=== PATIENT | female | born 1950 | race American Indian/Alaskan Native ===

== ENCOUNTER 2017-05-16 08:42 | Emergency (ER) | payer MEDICARE, OTHER ==
[2017-05-16 08:50] VITALS: BP 154/78
--- NOTE | 2017-05-16 13:53 | Emergency Department Report ---
HPI - General Chief Complaint: Upper Respiratory Infection Time Seen by Provider: 05/16/17 13:52 - HPI HPI: Patient reports that she has cough and cold since yesterday. She says she was exposed to the flu from under great grandkids. Sore throat at 5 out of 10 and worse with swallowing.. Denies any nausea or vomiting. Reports fever and chills and headache. Denies any abdominal or chest pain. Denies any difficulty breathing. Denies any difficulty swallowing or holding secretions. No medication taken. ED Past Medical Hx - Past Medical History Previous Medical History?: Yes Hx Diabetes: Yes Additional medical history: "stomach issues" x 1week - Surgical History Additional Surgical History: bilateral cataracts. - Family History Family history: hypertension - Social History Smoking Status: Never Smoker Substance Use Type: None - Medications Home Medications: Home Medications Medication Instructions Recorded Confirmed Last Taken Type Amoxicillin [Trimox CAP] 500 mg PO BID 02/12/13 02/12/13 02/12/13 History Clarithromycin [Biaxin] 500 mg PO QDAY 02/12/13 02/12/13 02/12/13 History Glimepiride [Amaryl] 4 mg DAILY 02/12/13 02/12/13 02/12/13 History 0900 Minoxidil [Loniten] 2.5 mg PO QDAY 02/12/13 02/12/13 02/12/13 History Omeprazole [Prilosec] 40 mg PO QDAY 02/12/13 02/12/13 02/12/13 History Sitagliptin Phosphate [Januvia] 100 mg PO DAILY 02/12/13 02/12/13 02/12/13 08: 00 History metFORMIN [Glucophage] 500 mg PO BID 02/12/13 02/12/13 02/12/13 09:00 History Amoxicillin/K Clav Tab [Augmentin 1 tab PO Q12HR 10 Days #20 tab 05/16/17 Unknown Rx 875 mg] Cetirizine HCl [ZyrTEC] 10 mg PO QAM 10 Days #10 capsule 05/16/17 Unknown Rx Fluticasone [Flonase] 1 spray NS QDAY 10 Days #1 bottle 05/16/17 Unknown Rx ED Review of Systems ROS: Stated complaint: COLD Other details as noted in HPI Comment: All other systems reviewed and negative Constitutional: chills, fever Eyes: denies: eye pain, eye discharge ENT: throat pain, congestion. denies: ear pain, dental pain Respiratory: cough. denies: orthopnea, shortness of breath, SOB with exertion, SOB at rest, stridor, wheezing Cardiovascular: denies: chest pain, palpitations, edema, syncope Gastrointestinal: denies: abdominal pain, nausea, vomiting, diarrhea Genitourinary: denies: dysuria, frequency, hematuria Musculoskeletal: myalgia. denies: back pain, joint swelling, arthralgia Skin: denies: rash Neurological: headache. denies: weakness, numbness, paresthesias, confusion Physical Exam - Physical Exam Vital Signs: Vital Signs 05/16/17 08:47 Temperature 99.3 F Pulse Rate 103 H Respiratory 18 Rate Blood Pressure 154/78 O2 Sat by Pulse 99 Oximetry Vital Signs 05/16/17 05/16/17 08:47 14:38 Temperature 99.3 F Pulse Rate 103 H 98 H Respiratory 18 Rate Blood Pressure 154/78 O2 Sat by Pulse 99 Oximetry General: This is a 67-year-old female well-nourished well-developed in no acute distress. Physical Exam: Head: Normocephalic atraumatic Ears:BIateral TM congested without erythema and loss of bony landmarks. Ananth EAC with normal exam. No mastoid bone tenderness. Mouth: Moist, no pharyngeal erythema or exudate . No tonsillar erythema or exudate. UVULA midline and oral airways patent. No peritonsillar abscess Neck: Nontender to palpate, supple, normal range of motion. No adenopathy. No c- spine tenderness. Nose: Bilateral nasal mucosa congested with clear drainage. Maxillary and frontal sinuses non-tender to palpate. Eyes: BiLateral Sclerae and conjunctiva without injection. Bilateral pupils equal and reactive to light. Bilateral lids are normal. Normal accommodation.BEOMI Lungs: Clear to auscultate bilaterally, no rhonchi wheezes or rales. Normal work of breathing and no chest wall tenderness. Dry cough CV: S1, S2. Mild tachycardia at 103 ,Regular rhythm negative murmur. Capillary refill is less than 3 seconds Skin: Clean dry and intact, no rashes or lesions Psych: Normal mood and behavior ED Course Vital Signs 05/16/17 08:47 Temperature 99.3 F Pulse Rate 103 H Respiratory 18 Rate Blood Pressure 154/78 O2 Sat by Pulse 99 Oximetry Vital Signs 05/16/17 05/16/17 08:47 14:38 Temperature 99.3 F Pulse Rate 103 H 98 H Respiratory 18 Rate Blood Pressure 154/78 O2 Sat by Pulse 99 Oximetry - Reevaluation(s) Reevaluation #1: 05/16/17 14:39 Patient stable throughout ED stay ED Medical Decision Making - Medical Decision Making ED Course:This is a 67-year-old female reports flulike symptoms and was exposed to the flu from her great grandson. Physical findings for referral of respiratory infection. I discussed the patient that this my physical findings and that she's been exposed to the flu that I will put her on Tamiflu. She agrees to treatment plan and patient discharged home with family with prescription for Tamiflu, and Zyrtec. Patient does have a primary care physician's I discussed with her that she is follow-up with her primary care physician in 2 days, rest, increase her fluid intake. Critical care attestation.: If time is entered above; I have spent that time in minutes in the direct care of this critically ill patient, excluding procedure time. ED Disposition Clinical Impression: Exposure to influenza, Acute viral syndrome, URI with cough and congestion, Fever in adult Disposition: DC-01 TO HOME OR SELFCARE Is pt being admited?: No Does the pt Need Aspirin: No Condition: Stable Instructions: Viral Syndrome (ED), Fever in Adults (ED), Acute Cough (ED) Additional Instructions: Please increase her fluid intake to 2-3 L of water per day. Take medication as prescribed Follow-up with a primary care physician in 2 days Rest for 72 hours Take Tylenol [id number] per dosing chart guideline every 4-6 hours for fever and/or pain for 48 hours and then as needed. Prescriptions: Amoxicillin/K Clav Tab [Augmentin 875 mg] 1 tab PO Q12HR 10 Days #20 tab Cetirizine HCl [ZyrTEC] 10 mg PO QAM 10 Days #10 capsule Fluticasone [Flonase] 1 spray NS QDAY 10 Days #1 bottle Referrals: SHANELLE MORRISON MD [Primary Care Provider] - 05/18/17 Forms: Work/School Release Form(ED)
[2017-05-16] MEDS ORDERED: TYLENOL #3 PO ONE (14:59)
== END 2017-05-16 15:58 | disposition home or self-care (01) ==
LOC: ED 08:42
DX: B34.9 Viral infection, unspecified (principal); J06.9 Acute upper respiratory infection, unspecified; R50.9 Fever, unspecified; E11.9 Type 2 diabetes mellitus without complications

== ENCOUNTER 2017-07-27 08:53 | Outpatient (CLI) | payer MEDICARE ==
--- NOTE | 2017-07-27 16:32 | Mammography Report ---
BONE DEXA:07/27/17 09:30:00 CLINICAL: Postmenopausal. No comparison. TECHNIQUE: Two site bone DEXA performed on an Hologic scanner. FINDINGS: The average BMD of the lumbar spine L1-L4 is 1.027g/cm squared with a T-score of -0.2 and a Z-score of +0.9. The average BMD of the left hip is 0.933g/cm squared with a T-score of -0.1 and a Z-score of lesser 0.4. The left femoral neck BMD is 0.678g/cm squared with a T score of -1.5 and Z score of -0.6 IMPRESSION: 1. WHO classification: Normal with average fracture risk based on lumbar spine measurements. 2. WHO classification: Osteopenia with increased fracture risk based on the femoral neck measurements. 3. The FRAX 10 year fracture probability for a major osteoporotic fracture is 3.9%. 4. The FRAX 10 year fracture probability for hip fracture is 0.4%. Note: FRAX version 3.01. Fracture probability calculated for an untreated patient. Fracture probability may be lower if the patient has received treatment. RECOMMENDATION: Clinical correlation and routine screening. DEFINITIONS: BMD = Bone Mineral Density T-score = BMD related to mean peak bone mass of young adult (mean expressed in Standard Deviation) Z-score = Age matched BMD expressed in SD World Health Organization (WHO) Diagnostic Criteria Normal T-score > -1 SD Osteopenia T-score between -1 and -2.4 SD Osteoporosis T-score -2.5 SD or below NOTE: BMD is not the only risk factor for fracture; also consider factors such as the patient's age, risk of falling, previous osteoporotic fracture, family history of osteoporotic fractures, current smoker, and low body weight. All treatment decisions require clinical judgment and consideration of individual patient factors, including patient preferences, comorbidities, previous drug use and risk factors not captured in the FRAX model (e.g. frailty, falls, vitamin D deficiency, increased bone turnover, interval significant decline in BMD). Fracture probability is calculated for an untreated patient. Fracture probability may be lower if the patient has received treatment. Z-scores are not calculated if >80 years of age.
== END 2017-07-27 08:54 | disposition home or self-care (01) ==
LOC: MAMMO 08:53
PROVIDERS: ATTEND Internal Medicine
DX: M85.88 Other specified disorders of bone density and structure, other site (principal); M81.0 Age-related osteoporosis without current pathological fracture; Z78.0 Asymptomatic menopausal state
CPT/HCPCS: 77080

== ENCOUNTER 2020-01-06 11:23 | Emergency (ER) | payer MEDICARE, OTHER ==
[2020-01-06 11:52] VITALS: BP 160/83
--- NOTE | 2020-01-06 12:48 | Emergency Department Report ---
ED ENT HPI - General Chief complaint: Earache Stated complaint: LFT EAR/EAR BLEEDING Time Seen by Provider: 01/06/20 12:43 Source: patient Mode of arrival: Ambulatory Limitations: No Limitations - History of Present Illness Initial comments: 69-year-old -Turkish female presents to the emergency room for 1 week history of left ear pain. Patient states that this morning she started knowing some discharge that is blood-tinged. She reports that the pain is worse when she chews on the left side. She states that she has been taking Tylenol with no relief. She is seen by Dr. Morrison he recommend for her to follow-up with the ear nose and throat provider. Patient states that the ENT reports that that she is not their patient and that she should go to the emergency room. MD complaint: ear pain Onset/Timin -: week(s) Location: L ear Severity: severe Severity scale (0 -10): 9 Quality: burning, stabbing, sharp Consistency: constant Improves with: none Worsens with: eating Associated Symptoms: discharge from ear - Related Data Home Medications Medication Instructions Recorded Confirmed Last Taken Amoxicillin [Trimox CAP] 500 mg PO BID 02/12/13 02/12/13 02/12/13 Clarithromycin [Biaxin] 500 mg PO QDAY 02/12/13 02/12/13 02/12/13 Glimepiride [Amaryl] 4 mg DAILY 02/12/13 02/12/13 02/12/13 0900 Omeprazole [Prilosec] 40 mg PO QDAY 02/12/13 02/12/13 02/12/13 Sitagliptin Phosphate [Januvia] 100 mg PO DAILY 02/12/13 02/12/13 02/12/13 08:00 metFORMIN [Glucophage] 500 mg PO BID 02/12/13 02/12/13 02/12/13 09:00 minoxidiL [Loniten] 2.5 mg PO QDAY 02/12/13 02/12/13 02/12/13 Previous Rx's Medication Instructions Recorded Last Taken Type Acetaminophen [Tylenol] 500 mg PO Q6HR PRN #12 tablet 05/16/17 Unknown Rx Cetirizine HCl [ZyrTEC] 10 mg PO QAM 10 Days #10 capsule 05/16/17 Unknown Rx Fluticasone [Flonase] 1 spray NS QDAY 10 Days #1 bottle 05/16/17 Unknown Rx Oseltamivir [Tamiflu] 75 mg PO BID 5 Days #10 cap 05/16/17 Unknown Rx Amoxicillin/K Clav Tab [Augmentin 1 tab PO Q12HR 10 Days #20 tab 01/06/20 Unknown Rx 875 mg] Neomy/Polymyx B/Hc Otic Susp 4 drops TID 10 Days #1 bottle 01/06/20 Unknown Rx [Cortisporin (Otic) Susp] Allergies Allergy/AdvReac Type Severity Reaction Status Date / Time No Known Allergies Allergy Unverified 02/12/13 19:45 ED Dental HPI - General Chief complaint: Earache Stated complaint: LFT EAR/EAR BLEEDING Time Seen by Provider: 01/06/20 12:43 Source: patient Mode of arrival: Ambulatory Limitations: No Limitations - Related Data Home Medications Medication Instructions Recorded Confirmed Last Taken Amoxicillin [Trimox CAP] 500 mg PO BID 02/12/13 02/12/13 02/12/13 Clarithromycin [Biaxin] 500 mg PO QDAY 02/12/13 02/12/13 02/12/13 Glimepiride [Amaryl] 4 mg DAILY 02/12/13 02/12/13 02/12/13 0900 Omeprazole [Prilosec] 40 mg PO QDAY 02/12/13 02/12/13 02/12/13 Sitagliptin Phosphate [Januvia] 100 mg PO DAILY 02/12/13 02/12/13 02/12/13 08:00 metFORMIN [Glucophage] 500 mg PO BID 02/12/13 02/12/13 02/12/13 09:00 minoxidiL [Loniten] 2.5 mg PO QDAY 02/12/13 02/12/13 02/12/13 Previous Rx's Medication Instructions Recorded Last Taken Type Acetaminophen [Tylenol] 500 mg PO Q6HR PRN #12 tablet 05/16/17 Unknown Rx Cetirizine HCl [ZyrTEC] 10 mg PO QAM 10 Days #10 capsule 05/16/17 Unknown Rx Fluticasone [Flonase] 1 spray NS QDAY 10 Days #1 bottle 05/16/17 Unknown Rx Oseltamivir [Tamiflu] 75 mg PO BID 5 Days #10 cap 05/16/17 Unknown Rx Amoxicillin/K Clav Tab [Augmentin 1 tab PO Q12HR 10 Days #20 tab 01/06/20 Unknown Rx 875 mg] Neomy/Polymyx B/Hc Otic Susp 4 drops TID 10 Days #1 bottle 01/06/20 Unknown Rx [Cortisporin (Otic) Susp] Allergies Allergy/AdvReac Type Severity Reaction Status Date / Time No Known Allergies Allergy Unverified 02/12/13 19:45 ED Review of Systems ROS: Stated complaint: LFT EAR/EAR BLEEDING Other details as noted in HPI Comment: All other systems reviewed and negative ED Past Medical Hx - Past Medical History Hx Diabetes: Yes Additional medical history: "stomach issues" x 1week - Surgical History Additional Surgical History: bilateral cataracts. - Social History Smoking Status: Former Smoker Substance Use Type: None - Medications Home Medications: Home Medications Medication Instructions Recorded Confirmed Last Taken Type Amoxicillin [Trimox CAP] 500 mg PO BID 02/12/13 02/12/13 02/12/13 History Clarithromycin [Biaxin] 500 mg PO QDAY 02/12/13 02/12/13 02/12/13 History Glimepiride [Amaryl] 4 mg DAILY 02/12/13 02/12/13 02/12/13 History 0900 Omeprazole [Prilosec] 40 mg PO QDAY 02/12/13 02/12/13 02/12/13 History Sitagliptin Phosphate [Januvia] 100 mg PO DAILY 02/12/13 02/12/13 02/12/13 08:00 History metFORMIN [Glucophage] 500 mg PO BID 02/12/13 02/12/13 02/12/13 09:00 History minoxidiL [Loniten] 2.5 mg PO QDAY 02/12/13 02/12/13 02/12/13 History Acetaminophen [Tylenol] 500 mg PO Q6HR PRN #12 tablet 05/16/17 Unknown Rx Cetirizine HCl [ZyrTEC] 10 mg PO QAM 10 Days #10 capsule 05/16/17 Unknown Rx Fluticasone [Flonase] 1 spray NS QDAY 10 Days #1 bottle 05/16/17 Unknown Rx Oseltamivir [Tamiflu] 75 mg PO BID 5 Days #10 cap 05/16/17 Unknown Rx Amoxicillin/K Clav Tab [Augmentin 1 tab PO Q12HR 10 Days #20 tab 09/18/20 Unknown Rx 875 mg] Neomy/Polymyx B/Hc Otic Susp 4 drops TID 10 Days #1 bottle 01/06/20 Unknown Rx [Cortisporin (Otic) Susp] ED Physical Exam - General Limitations: No Limitations General appearance: alert, in distress - Head Head exam: Present: atraumatic, normocephalic - Eye Eye exam: Present: normal appearance - ENT ENT exam: Present: mucous membranes moist - Expanded ENT Exam Expanded TM/Canal exam: Loss of Landmarks: Left TM, Mastoid Tenderness: Left TM, Canal Discharge: Left TM, Canal Tenderness: Left TM - Neck Neck exam: Present: normal inspection, full ROM - Neurological Exam Neurological exam: Present: alert, oriented X3, normal gait - Psychiatric Psychiatric exam: Present: normal affect, normal mood - Skin Skin exam: Present: warm, dry, intact, normal color. Absent: rash ED Course Vital Signs 01/06/20 11:44 Temperature 97.4 F L Pulse Rate 116 H Respiratory 18 Rate Blood Pressure 160/83 O2 Sat by Pulse 96 Oximetry ED Medical Decision Making - Medical Decision Making 69-year-old -Turkish female presents to the emergency room for 1 week history of left ear pain. Patient states that this morning she started knowing some discharge that is blood-tinged. She reports that the pain is worse when she chews on the left side. She states that she has been taking Tylenol with no relief. She is seen by Dr. Morrison he recommend for her to follow-up with the ear nose and throat provider. Patient states that the ENT reports that that she is not their patient and that she should go to the emergency room. Patient will be placed on Augmentin and Cortisporin she can take Tylenol and ibuprofen for pain management. Follow-up with the ear nose and throat provider. Critical care attestation.: If time is entered above; I have spent that time in minutes in the direct care of this critically ill patient, excluding procedure time. ED Disposition Clinical Impression: Diffuse otitis externa, left ear, Otitis media, left Disposition: DC-01 TO HOME OR SELFCARE Is pt being admited?: No Does the pt Need Aspirin: No Condition: Stable Instructions: Otitis Media (ED), Otitis Externa (ED) Additional Instructions: Complete antibiotics as prescribed. Take ibuprofen Tylenol or naproxen for pain management. Increase your water intake. Follow-up with your primary care provider or ear nose and throat provider. Prescriptions: Amoxicillin/K Clav Tab [Augmentin 875 mg] 1 tab PO Q12HR 10 Days #20 tab Neomy/Polymyx B/Hc Otic Susp [Cortisporin (Otic) Susp] 4 drops TID 10 Days #1 bottle Referrals: PRIMARY CAREMD [Primary Care Provider] - 3-5 Days SHANELLE MORRISON MD [Staff Physician] - 3-5 Days ENT [facility] [Provider Group] - 3-5 Days
== END 2020-01-06 12:55 | disposition home or self-care (01) ==
LOC: ED 11:23
DX: H60.92 Unspecified otitis externa, left ear (principal); H66.92 Otitis media, unspecified, left ear; E11.9 Type 2 diabetes mellitus without complications; Z87.891 Personal history of nicotine dependence; Z98.890 Other specified postprocedural states; Z79.84 Long term (current) use of oral hypoglycemic drugs; Z79.2 Long term (current) use of antibiotics; Z79.899 Other long term (current) drug therapy
CPT/HCPCS: 99282

== ENCOUNTER 2021-11-04 12:56 | Outpatient (CLI) | payer MEDICARE ==
--- NOTE | 2021-11-06 10:15 | Mammography Report ---
DIGITAL SCREENING MAMMOGRAM WITH CAD, 11/04/2021 CLINICAL INFORMATION / INDICATION: Routine screening mammography. Z12.31 TECHNIQUE: Digital bilateral 2D mammography was obtained in the craniocaudal and mediolateral obliqu e projections. This examination was interpreted with the benefit of Computer-Aided Detection analysis . COMPARISON: None. FINDINGS: Breast Density: The breasts are heterogeneously dense, which may obscure small masses. No dominant mass, suspicious calcifications, or architectural distortion in either breast. Benign-appearing calcification left greater than right. IMPRESSION: No mammographic evidence of malignancy. Follow up recommendation: Routine yearly screening mammogram. BI-RADS Category 2: BENIGN. A "normal" or negative report should not discourage follow up or biopsy of a clinically significant f inding. A written summary of these findings will be mailed to the patient. The patient will be entered into a mammography reporting system which will generate a reminder letter for the patient's next appointmen t at the appropriate interval. The [employer] recommends yearly mammograms starting at age 40 and continuing as l marisela as a woman is in good health. Breast MRI is recommended for women with an approximate 20-25% or greater lifetime risk of breast cancer, including women with a strong family history of breast or ova keeley cancer or who have been treated for Hodgkin's disease. Signer Name: Kash Man MD Signed: 11/06/2021 10:10 AM Workstation Name: [employer]
== END 2021-11-04 12:57 | disposition home or self-care (01) ==
LOC: MAMMO 12:56
PROVIDERS: ATTEND Nurse Practitioner Family
DX: Z12.31 Encounter for screening mammogram for malignant neoplasm of breast (principal)
CPT/HCPCS: 77067